=== PATIENT | female | born 1950 | race Hispanic/Latino ===

== ENCOUNTER 2018-07-25 10:04 | Outpatient (CLI) | payer MEDICARE, OTHER | END 2018-07-25 10:05 | disposition home or self-care (01) | LOC: C.LAB 10:04 ==

== ENCOUNTER 2018-07-28 14:43 | Outpatient (CLI) | payer MEDICARE, OTHER | END 2018-07-28 14:44 | disposition home or self-care (01) | LOC: C.MRIC 14:43 ==